=== PATIENT | male | born 1990 | race Caucasian/White ===

== ENCOUNTER 2018-03-15 20:28 | Emergency (ER) | payer OTHER ==
[2018-03-15 22:59] VITALS: BP 140/65; PULSE 85; RESP 16; TEMP 99.4
[2018-03-15] MEDS ORDERED: LORazepam 1 MG TAB PO STA (23:08)
--- NOTE | 2018-03-15 23:10 | ED ---
General Adult HPI - General Chief complaint: Psychiatric Symptoms Stated complaint: Mental Health Time Seen by Provider: 03/15/18 21:17 Source: patient, RN notes reviewed Mode of arrival: ambulatory Limitations: no limitations - History of Present Illness Initial comments: Chief complaint and history of present illness is a 28-year-old male here with a complaint that he has run out of his Ativan, Wellbutrin and Neurontin. He states he has difficulties getting to see his doctor who won't refill of less she sees him in follow-up. He's been out of these approximately one month. Patient reports she is depressed but not suicidal. Also reports going through a divorce. Denies overdosing. - Related Data Allergies Allergy/AdvReac Type Severity Reaction Status Date / Time No Known Allergies Allergy Verified 03/15/18 21:04 Review of Systems ROS Statement: Those systems with pertinent positive or pertinent negative responses have been documented in the HPI. Review of systems no other complaints this time. Past history significant for depression. He has cut himself twice in the past. Again denies wanting to hurt himself at this time denies homicidal thoughts. Surgeries include hand surgery from industrial accident. Family history father of lung cancer. Patient is a smoker strongly encouraged to stop. Patient denies any ALLERGIES. Drinks alcohol socially. ROS Other: All systems not noted in ROS Statement are negative. Past Medical History Past Medical History: No Reported History History of Any Multi-Drug Resistant Organisms: None Reported Past Surgical History: Orthopedic Surgery Additional Past Surgical History / Comment(s): left hand surgery Past Psychological History: Bipolar, Depression Smoking Status: Current every day smoker Past Alcohol Use History: Occasional Past Drug Use History: Marijuana General Exam - General Exam Comments Initial Comments: General: The patient is awake and alert, in no distress, and does not appear acutely ill. Here with a complaint of being depressed. But not suicidal. Wants to talk psychiatric nurse. Vital signs temp 98.8 pulse 81 respiratory rate 18 pulse ox 97% room air blood pressure 127/77 Eye: Pupils are equal, round and reactive to light, extra-ocular movements are intact ; there is normal conjunctiva bilaterally. No signs of icterus. Ears, nose, mouth and throat: There are moist mucous membranes and no oral lesions. Neck: The neck is supple, there is no tenderness. Cardiovascular: There is a regular rate and rhythm. No murmur, rub or gallop is appreciated. Respiratory: Lungs are clear to auscultation, respirations are non-labored, breath sounds are equal. No wheezes, stridor, rales, or rhonchi. Gastrointestinal: Soft, non-distended, non-tender abdomen without masses or organomegaly noted. There is no rebound or guarding present. No CVA tenderness. Bowel sounds are unremarkable. Back: There is no tenderness to palpation in the midline. There is no obvious deformity. No rashes noted. Musculoskeletal: Normal ROM, no tenderness, There is no pedal edema. There is no calf tenderness or swelling. Sensation intact. Healed self-inflicted injuries left forearm.. Neurological: No neuro deficits Skin: Skin is warm and dry and no rashes or lesions are noted. Psychiatric: Cooperative, history of depression. Denies being suicidal. Limitations: no limitations Course Vital Signs 03/15/18 03/15/18 21:01 22:59 Temperature 98.8 F 99.4 F Pulse Rate 81 85 Respiratory 18 16 Rate Blood Pressure 127/77 140/65 O2 Sat by Pulse 97 99 Oximetry Medical Decision Making - Medical Decision Making Medical decision making; this is a 28-year-old male here with a complaint of having run out of his medications including Ativan, Wellbutrin and Neurontin. Patient was evaluated by psychiatric nurse to the emergency room. She discussed the case with the psychiatrist. The patient was given referrals. He' ll be given 0.5 Ativan this evening. Patient again states not suicidal or homicidal. Disposition Clinical Impression: Depression Disposition: HOME SELF-CARE Condition: Fair Instructions: Depression (ED) Additional Instructions: Follow-up with family doctor and referrals to local [facility] facility. Turn emergency room if he have change in emotional state Is patient prescribed a controlled substance at d/c from ED?: No Referrals: Lorraine Cruz MD [Primary Care Provider] - 1-2 days
[2018-03-15 23:16] LABS: Amphetamine Screen,Urine Not Detected (NotDetected); Barbiturate Screen,Urine Not Detected (NotDetected); Benzodiazepines Screen,Urine Not Detected (NotDetected); Cocaine Screen,Urine Detected (NotDetected); Methadone Screen, Urine Not Detected (NotDetected); Opiate Screen,Urine Detected (NotDetected); Oxycodone Screen, Urine Not Detected (NotDetected); Phencyclidine Screen,Urine Not Detected (NotDetected); Tricyclic Antidepressant,Urine Not Detected (NotDetected); Urn Cannabinoid Scrn Not Detected (NotDetected)
== END 2018-03-15 23:20 | disposition home or self-care (01) ==
LOC: EC 20:28
DX: F32.9 Major depressive disorder, single episode, unspecified (principal); F17.200 Nicotine dependence, unspecified, uncomplicated
CPT/HCPCS: 80306; 82075; 99284

== ENCOUNTER 2022-03-30 00:25 | Inpatient (IN) | payer MEDICAID ==
[2022-03-30] MEDS ORDERED: HALOPERIDOL LACTATE 5 MG/ML 1 ML VIAL IM PRN (00:46)
[2022-03-30] MEDS ORDERED: ACETAMINOPHEN TAB 325 MG TAB PO PRN (00:46)
[2022-03-30] MEDS ORDERED: MAG HYDROX/AL HYDROX/SIMETH 30 ML CUP PO PRN (00:46)
[2022-03-30] MEDS ORDERED: LORazepam 1 MG/0.5 ML VIAL IM PRN (00:48)
[2022-03-30] MEDS ORDERED: haloperidoL 5 MG TAB PO PRN (00:49)
[2022-03-30] MEDS ORDERED: LOPERAMIDE 2 MG CAP PO PRN (00:50)
[2022-03-30] MEDS ORDERED: ONDANSETRON 4 MG TAB PO PRN (00:50)
[2022-03-30] MEDS: NICOTINE 14MG/24HR PATCH TRANSDERM SCH ×2 (12:58→13:07)
[2022-03-30] MEDS: LORazepam 1 MG TAB PO PRN (12:58)
[2022-03-30] MEDS: cloNIDine HCL 0.2 MG TAB PO PRN (12:58)
--- NOTE | 2022-03-30 16:35 | P.HPMEDMHU ---
History of Present Illness H&P Date: 03/30/22 Chief Complaint: depression Patient is a 32-year-old male with a history of opiate dependency, ventral hernia, and bipolar disorder who was admitted to the mental health unit from [facility] due to suicidal ideation. Patient seen and examined at bedside. He denies any recent cough, cold, fever, flu, nausea, vomiting, diarrhea, dysuria. He states he's been feeling depressed recently. He attended a opiate detox program and relapsed quickly after dis charge and has become depressed. He has no other complaints at this time. He did have a ventral hernia repair approximately 2 and half months ago and has been doing well since then. Pertinent positives and negatives as discussed in HPI, a complete review of systems was performed and all other systems are negative. Vital signs reviewed General: nontoxic, no distress, appears at stated age Derm: warm, dry, multiple tattoos Head: atraumatic, normocephalic, symmetric Eyes: EOMI, no lid lag, anicteric sclera, pupils equal round reactive to light ENT: Nose and ears atraumatic, no thrush, no pharyngeal erythema Neck: No thyromegaly, no cervical lymphadenopathy, trachea midline, supple Mouth: no lip lesion, mucus membranes moist Cardiovascular: S1S2 reg, no murmur, positive posterior tibial pulse bilateral, no edema, capillary refill less than 2 seconds Lungs: clear to auscultation bilateral, no rhonchi, no rales, no wheeze, no accessory muscle use Abdominal: soft, nontender to palpation, no guarding, no appreciable organomegaly, normal bowel sounds, healing scar. Abdomen Ext: no gross muscle atrophy, muscle strength muscle strength 5 out of 5 in all 4 extremities, no contractures Neuro: CN II-XII grossly intact, light touch intact all 4 extremities, finger to nose within normal limits, Psych: Alert, oriented, appropriate affect Assessment/Plan: Opiate dependency -Continue with abstinence -Initiate medications for possible opiate withdrawal including Motrin, Catapres, Maalox, and Zofran. Suicidal ideation with history of bipolar -Your psych management Laboratory analysis reviewed from [facility] and unremarkable. Thank you for allowing us to participate in the care of this pleasant patient. Do not hesitate to contact us with questions. Someone can be reached from the [facility] hospitalist group all hours of the day at [phone] or via [employer]. Past Medical History Past Medical History: No Reported History History of Any Multi-Drug Resistant Organisms: None Reported Past Surgical History: Orthopedic Surgery Additional Past Surgical History / Comment(s): left hand tendon repair, ventral hernia repair Past Psychological History: Bipolar, Depression Smoking Status: Former smoker Past Alcohol Use History: None Reported, Occasional Past Drug Use History: Heroin, Marijuana, Opiates Additional Drug Use History / Comment(s): snorts heroin and fentanyl Medications and Allergies Allergies Allergy/AdvReac Type Severity Reaction Status Date / Time No Known Allergies Allergy Verified 03/30/22 14:09 Physical Exam Osteopathic Statement: *. No significant issues noted on an osteopathic structural exam other than those noted in the History and Physical/Consult. Vitals: Vital Signs Temp Pulse Resp BP Pulse Ox 03/30/22 12:39 98.2 F 62 20 125/61 98 Intake and Output 03/30/22 03/30/22 03/30/22 06:59 14:59 22:59 Other: Weight 99.8 kg 93 kg Cranial Nerve Examination - Cranial Nerves Cranial Nerve II- Optic: Intact Cranial Nerve III- Oculomotor: Intact Cranial Nerve IV- Trochlear: Intact Cranial Nerve V- Trigeminal: Intact Cranial Nerve - Abducens: Intact Cranial Nerve VII- Facial: Intact Cranial Nerve VIII- Auditory: Intact Cranial Nerve IX- Glossopharyngeal: Intact Cranial Nerve X- Vagus: Intact Cranial Nerve XI- Accessory: Intact Cranial Nerve XII- Hypoglossal: Intact
[2022-03-30] MEDS: traZODone HCL 100 MG TAB PO SCH (21:55)
[2022-03-31] MEDS: LORazepam 1 MG TAB PO PRN ×2 (08:24→17:22)
[2022-03-31] MEDS: cloNIDine HCL 0.2 MG TAB PO PRN ×2 (08:24→17:22)
[2022-03-31] MEDS: NICOTINE 14MG/24HR PATCH TRANSDERM SCH (08:25)
--- NOTE | 2022-03-31 10:06 | P.HP ---
Psychiatric H&P - . H&P Date: 03/31/22 History & Physical: IDENTIFYING DATA: Teodoro is a 32-year-old single male transferred from [facility] HISTORY OF PRESENT ILLNESS: According to the information in the transfer report he presented to the emergency room at [facility] with complaints of suicidal ideation, depression and isolation over the week prior to his presentation. He had suicidal ideations of an intentional overdose. During our interview he stated that he presented to [facility] he has he wanted to reenter mental health treatment. He talked about having been prescribed medications through a clinic at [facility] in 2014 that were effective in treating his depression and helping to control his use of heroin. He described wishes but denied that he had suicidal intent or plan. He has a long history of substance use, primarily heroin, and legal problems beginning in adolescence. He was released from [place] [facility] after serving 12 months for multiple charges including to two counts of retail fraud and 1, was assault with intent of great bodily harm. His release he spent 4 months in [facility] and was [facility] on March 13 [facility] [place] [facility]. He relapsed to heroin and cocaine while he was a resident at [facility]. He sought treatment because he is concerned that if he continued using he would eventually recur additional legal problems and once again be incarcerated. He described feelings of depression, hopelessness and helplessness particularly related to his substance use and legal problems. He described symptoms of depression including low energy, unrestful sleep and poor appetite. He complained of vague anxiety symptoms and denied a specific object. I was unable to identify a clear episode of elevated mood or sustained irritability suggestive of meghana or hypomania. He denied experiencing psychotic symptoms such as hallucinations, paranoia or confusion. PAST PSYCHIATRIC HISTORY: He said "3 or 4" psychiatric hospitalizations beginning when he is 13 years old at [facility]. When I asked about reason for this hospitalization he replied it was a time when his grandparents . The longest he was consistently involved with outpatient treatment was in 2013 when he was in treatment through a clinic [facility]. PAST MEDICAL HISTORY: He denied major medical problems ALLERGIES: Known drug ALLERGIES SUBSTANCE USE HISTORY: He is a history of heroin use beginning in adolescence. He alleged that he went "straight" to heroin. He occasionally uses cocaine but denied use of other drugs including oral opiate medications and methamphetamine. He has injected heroin in the past but primarily insufflates. He is not been in the methadone clinic and is not been prescribed buprenorphine by a provider for the treatment of his opiate use disorder. His longest period of abstinence was approximately 24 months while he was incarcerated. He was abstinent from heroin for 14 months when he was prescribed Vivatrol by a private practitioner. FAMILY PSYCHIATRIC/SUBSTANCE USE HISTORY: His brother has a history of an opiate use disorder. LEGAL HISTORY: He has long history of legal problems beginning in adolescence. He is currently on probation for 2 counts of retail fraud and assault with great bodily harm less than murder. He is inactive charges of breaking into nothing larceny and multiple counts of home invasion. SOCIAL HISTORY: His born and raised in [facility]. He was raised by his mother and his grandparents. His father was not present. He left school in the 10th grade but received a GED. 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 He is single and has 2 children by 2 different mothers. MENTAL STATUS EXAM: He presented as a stocky 32-year-old male with a bald head and multiple tattoos on his chest, arms, chest, neck and face. He made eye contact and attended to the interview. He had no prominent physical abnormalities. He had a blunted facial expression. He was alert and oriented to person, place and time. He had slight psychomotor retardation but no abnormal involuntary movements. His speech was spontaneous with decreased rate and volume. His affect was depressed and not reactive. He denied suicidal ideation but described wishes. He denied homicidal ideation. He expressed feelings of hopelessness and helplessness primarily with regard to his legal and substance use problems. He did not express ideas reference, paranoid ideation, magical ideation or delusions. His thinking was concrete but his associations were coherent, logical and goal directed. He denied hallucinations did not appear to be responding to internal stimuli. Global impression of intellect is average. He is aware of his illness and need for treatment. STRENGTHS: Good physical health, stable housing, unemployment WEAKNESSES: Substance use disorder, legal problems IMPRESSION: He is a 32-year-old single male with long history of legal and substance use problems. He presented to [facility] with complaints of suicidal ideation without intent or plan. He is been under legal supervision or approximate 16 months and relapsed to heroin 2 days after his release from supervision. He is concerned that if he would relapse fully to heroin he reengage and illegal activities. He appears depressed and has other symptoms suggestive of a depressive disorder. She presented an inpatient basis, psychopharmacology and multimodal therapy. PRINCIPLE DIAGNOSIS: Unspecified depressive disorder, rule out major depressive disorder, rule out dysthymic disorder, rule out opiate induced mood disorder, opiate use disorder severe, cocaine use disorder, legal problems, probable antisocial personality disorder RECOMMENDATION: Admitted to the psychiatric unit. Safety precautions. Consult medicine for initial physical exam and medical history. production utility worker to complete the initial psychosocial assessment coordinate discharge and aftercare. Begin Wellbutrin 100 mg twice a day and titrated according to clinical response and tolerance. Clonidine 0.2 mg by mouth 4 times a day when necessary for opiate withdrawal, Imodium 2 mg 4 times a day when necessary for opiate withdrawal, Zofran 4 mg by mouth every 8 hours when necessary for opiate withdrawal, trazodone 100 mg by mouth daily at bedtime when necessary for sleep, Habitrol for smoking cessation. Haldol and/or Ativan when necessary for agitation, aggression acute psychosis. Encourage participation in therapeutic groups and activities. Evaluate clinical status response to treatment daily basis. Allergies Allergy/AdvReac Type Severity Reaction Status Date / Time No Known Allergies Allergy Verified 03/30/22 14:09 Vital Signs Temp 98.2 F 03/30/22 12:39 Pulse 62 03/30/22 12:39 Resp 20 03/30/22 12:39 BP 125/61 03/30/22 12:39 Pulse Ox 98 03/30/22 12:39 FiO2 Intake & Output 03/30/22 03/31/22 03/31/22 18:59 06:59 18:59 Weight 93 kg Laboratory Last Values TSH 1.030 mIU/L (0.465-4.680) 03/31/22 07:55 03/31/22 09:20 03/31/22 10:03
[2022-03-31 16:50] LABS: Chol/HDL Ratio 4.66 Ratio; LDL Cholesterol,Calculated 102.1 mg/dL (0.0-131.0)
[2022-03-31] MEDS: traZODone HCL 100 MG TAB PO SCH (21:42)
[2022-04-01] MEDS: MAGNESIUM HYDROXIDE 2,400 MG/10 ML CUP PO PRN ×2 (06:35→18:43)
[2022-04-01] MEDS: LORazepam 1 MG TAB PO PRN ×3 (06:35→21:27)
[2022-04-01] MEDS: NICOTINE 14MG/24HR PATCH TRANSDERM SCH ×2 (09:06→10:09)
[2022-04-01] MEDS ORDERED: buPROPion 100 MG TAB PO STA (10:01)
[2022-04-01] MEDS ORDERED: GABAPENTIN 300 MG CAP PO STA (10:04)
--- NOTE | 2022-04-01 11:50 | P.PN ---
Progress Note - Text Progress Note Date: 04/01/22 Interval History: Patient was seen wandering the hallways and was directable and agreeable to speak with bond writer in the office. Patient reports that he is feeling well. He is currently denying any suicidal or homicidal comments. He is not reporting any auditory or visual hallucinations. He is denying any paranoia or other delusions. The patient reports that the longest he has been sober was for 3 years. He states that after time he was incarcerated and during the other half, he was on a regimen of Wellbutrin and Neurontin. He also reports that Neurontin was helpful in addressing his nerve pain that resulted from him cutting his wrists in the distant past. Furthermore, the patient denies any history of seizures. He was counseled at length that substance abuse may contribute to a lower seizure threshold. He wishes to start the Wellbutrin today. Mental Status Exam: General Appearance: Patient appears to be stated age is alert, directable, and cooperative. The patient has multiple tattoos and superficial scarring on his left forearm. Behavior: Patient is calmly seated without any agitated behavior. Speech: Patient's speech is fluent and nonpressured. Mood/Affect: Mood is improving mildly, affect is congruent and euthymic to bright. Suicidality/Homicidality: Patient reports no suicidal or homicidal ideation, intention, and/or plan. Perceptions: Patient denies any visual hallucinations and denies any auditory hallucinations Though content/process: There is no evidence of any delusional thought content and thought process is linear and goal-directed. Memory and concentration: AOX3, grossly intact for the purposes of this session Judgment and insight: Improving mildly Vital Signs Temp 97.9 F 04/01/22 06:36 Pulse 87 04/01/22 06:36 Resp 18 04/01/22 06:36 BP 100/66 04/01/22 06:36 Pulse Ox 97 04/01/22 06:36 FiO2 Intake & Output 03/31/22 04/01/22 04/01/22 18:59 06:59 18:59 Weight 94.1 kg Laboratory Results - Last 24 Hours 03/31/22 07:55 Triglycerides 169.00 H Cholesterol 173.00 LDL Cholesterol, Calc 102.1 VLDL Cholesterol, Calc 33.80 HDL Cholesterol 37.10 L Cholesterol/HDL Ratio 4.66 Assessment Major depressive disorder Opiate use disorder Cocaine use disorder Plan: -Patient continues to meet criteria for inpatient psychiatric admission for symptom stabilization and safety. Patient has signed adult voluntary form and medication consent and was placed in patient's chart. -Medications: Start Wellbutrin 100 mg by mouth twice a day for depression Start gabapentin 3 mg by mouth twice a day for a label use for anxiety to address neuropathic pain -When necessary Ativan and Haldol for agitation/aggression. -NRT - nicotine patch -SW on board for discharge planning. Encouraged the patient to participate in milieu.
[2022-04-01] MEDS: cloNIDine HCL 0.2 MG TAB PO PRN (13:48)
[2022-04-01] MEDS ORDERED: LORazepam 2 MG/ML INJ IM PRN (18:32)
[2022-04-01 21:27] VITALS: RESP 16
[2022-04-01] MEDS: traZODone HCL 100 MG TAB PO SCH (21:27)
[2022-04-01] MEDS: buPROPion 100 MG TAB PO SCH (21:27)
[2022-04-01] MEDS: GABAPENTIN 300 MG CAP PO SCH (21:27)
[2022-04-02 07:08] VITALS: BP 104/58; PULSE 80; TEMP 97.5
[2022-04-02] MEDS: LORazepam 1 MG TAB PO PRN (08:12)
[2022-04-02] MEDS: buPROPion 100 MG TAB PO SCH (08:12)
[2022-04-02] MEDS: GABAPENTIN 300 MG CAP PO SCH (08:12)
[2022-04-02] MEDS: NICOTINE 14MG/24HR PATCH TRANSDERM SCH (08:12)
[2022-04-02] MEDS: MAGNESIUM HYDROXIDE 2,400 MG/10 ML CUP PO PRN (08:32)
--- NOTE | 2022-04-02 11:38 | P.DS ---
Providers Date of admission: 03/30/22 12:15 Expected date of discharge: 04/02/22 Attending physician: Quan Chung MD Consults: 03/30/22 00:46 Consult Physician Routine Consulting Provider: Gwendolyn Eng Consult Reason/Comments: H and P Do you want consulting provider notified?: Yes Primary care physician: Stated None - Discharge Diagnosis(es) (1) Major depressive disorder Current Visit: Yes Status: Acute Priority: High (2) Cocaine use disorder Current Visit: Yes Status: Chronic Priority: Medium (3) Heroin use disorder, moderate Current Visit: Yes Status: Chronic Priority: Medium Hospital Course: Admission HPI: Initial psychiatric evaluation was completed by Dr Mast who wrote: "Teodoro is a 32-year-old single male transferred from [facility] HISTORY OF PRESENT ILLNESS: According to the information in the transfer report he presented to the emergency room at [facility] with complaints of suicidal ideation, depression and isolation over the week prior to his presentation. He had suicidal ideations of an intentional overdose. During our interview he stated that he presented to [facility] he has he wanted to reenter mental health treatment. He talked about having been prescribed medications through a clinic at [facility] in 2014 that were effective in treating his depression and helping to control his use of heroin. He described wishes but denied that he had suicidal intent or plan. He has a long history of substance use, primarily heroin, and legal problems beginning in adolescence. He was released from [place] after serving 12 months for multiple charges including to two counts of retail fraud and 1, was assault with intent of great bodily harm. His release he spent 4 months in [facility] and [facility] [place] [facility]. He relapsed to heroin and cocaine while he was a resident at [facility]. He sought treatment because he is concerned that if he continued using he would eventually recur additional legal problems and once again be incarcerated. He described feelings of depression, hopelessness and helplessness particularly related to his substance use and legal problems. He described symptoms of depression including low energy, unrestful sleep and poor appetite. He complained of vague anxiety symptoms and denied a specific object. I was unable to identify a clear episode of elevated mood or sustained irritability suggestive of meghana or hypomania. He denied experiencing psychotic symptoms such as hallucinations, paranoia or confusion. He said "3 or 4" psychiatric hospitalizations beginning when he is 13 years old at [facility]. When I asked about reason for this hospitalization he replied it was a time when his grandparents . The longest he was consistently inv olved with outpatient treatment was in 2013 when he was in treatment through a clinic [facility]." Hospital course: Upon admission to the unit patient was initially presenting with mild psychomotor retardation and suicidal ideation. Patient was however directable and agreeable to commence treatment. Patient got along well with other patients on the unit and followed unit protocol. Patient was compliant with the medications and denied any side effects throughout hospital course. Patient was started on clonidine. Patient , Imodium, trazodone, and Zofran for opiate wit hdrawal. The patient was then evaluated by this provider who initiated treatment with Wellbutrin and gabapentin for management of depression and anxiety as well as neuropathic pain. Over the course the hospitalization, the patient is with significant improvement regards his target symptoms depression and suicidal ideation. He became more future and goal oriented. He was also evaluated by the medical team for history and physical examination. The patient signed himself voluntarily on the psychiatric unit. On the day of discharge, the patient is not reporting any suicidal or homicidal ideation, intention, and/or plan. He is not reporting any auditory or visual hallucinations. He denies any paranoia or other delusions. The patient denies any access to firearms or other weapons. He reports future and goal orientation with a strong desire to live for himself as well as for his girlfriend. The patient does have significant history of substance abuse was counseled great length on abstaining from all substances including alcohol, marijuana, opiates, and cocaine. The patient was offered however declined inpatient substance-abuse rehabilitation. He was counseled on medication adherent and appropriate outpatient follow-up. As additional longer met criteria for inpatient psychiatric hospital stabilization, he was subsequently discharged. Mental status exam: General Appearance: Patient appears to be stated age is alert, pleasant, and cooperative. Patient is in no acute distress and has fair hygiene and grooming. Bald with multiple tattoos. Behavior: Patient is calmly seated without any agitated behavior. Speech: Patient's speech is fluent and nonpressured. Mood/Affect: Patient reports their mood is "much better", affect is congruent and euthymic to bright. Suicidality/Homicidality: Patient denies having any suicidal or homicidal ideation intent or plan. Perceptions: Patient denies any auditory or visual hallucinations. Though content/process: There is no evidence of any delusional thought content and thought process is linear and goal-directed. Patient is future oriented. Memory and concentration: AOX3, grossly intact for the purposes of this session. Can spell "WORLD" backwards correctly. Judgment and insight: Improved with guarded prognosis Vital Signs Temp 97.5 F L 04/02/22 07:08 Pulse 80 04/02/22 07:08 Resp 16 04/01/22 21:26 BP 104/58 04/02/22 07:08 Pulse Ox 98 04/01/22 21:26 FiO2 Laboratory Results Estimated Ave Glu mg/dL 106 03/31/22 07:55 Hemoglobin A1c 5.3 % (0.0-6.0) 03/31/22 07:55 Triglycerides 169.00 mg/dL (0.00-149.00) H 03/31/22 07:55 Cholesterol 173.00 mg/dL (0.00-200.00) 03/31/22 07:55 LDL Cholesterol, Calc 102.1 mg/dL (0.0-131.0) 03/31/22 07:55 VLDL Cholesterol, Calc 33.80 mg/dL (5.00-40.00) 03/31/22 07:55 HDL Cholesterol 37.10 mg/dL (40.00-60.00) L 03/31/22 07:55 Cholesterol/HDL Ratio 4.66 Ratio 03/31/22 07:55 TSH 1.030 mIU/L (0.465-4.680) 03/31/22 07:55 Allergies Allergy/AdvReac Type Severity Reaction Status Date / Time No Known Allergies Allergy Verified 03/30/22 14:09 Impression: Major depressive disorder Opiate use disorder Cocaine use disorder Plan: -Continue with discharge today as patient has improved and stabilized psychiatrically and is not currently an imminent threat to himself and/or others. Patient will remain at chronically elevated risk for harm to self and/or others due to his impulsivity and polysubstance abuse. -Continue medications: Wellbutrin 100 mg twice a day for depression Gabapentin 300 mg by mouth twice a day for anxiety and for neuropathic pain. -Patient was counseled on the need for medication compliance and appropriate follow-up at mental health and also primary care for medical issues. Patient verbalized understanding and agreed. -Social work to arrange for and conduct family meeting to ensure safety upon discharge and answer any questions/concerns. Social work also to arrange for patients follow up appointments with [facility] for psychiatric care along with follow up with primary care provider. -Patient counseled on abstaining from recreational drugs and marijuana and alcohol. Was informed/educated on the adverse effects on their physical and mental health. Patient verbally agreed and understood. Patient was offered substance abuse treatment however declined at this time. -Patient was instructed to return to the hospital or seek immediate medical care if their psychiatric or medical symptoms do worsen or reoccur. -Psychoeducation and supportive therapy provided to patient. Risks and benefits of pharmacological treatment versus the risks and benefits of nontreatment weight and discussed. Informed consent discussion held. Common side effects of psychotropics discussed such as, but not limited to headache, GI disturbance, sexual dysfunction, movement disorders, sedation, and orthostatic hypotension. Life threatening and blackbox warnings of prescribed medications also discussed. Potential risks of operating a vehicle or heavy machinery discussed with patient at length. Advised on importance of compliance and a reliable and responsible manner. Patient advised to review FDA consumer labeling of all medications prior to taking. Patient verbalized understanding of potential risks, and agrees with current treatment plan. Patient advised to medically contact physician/emergency personnel if any acute changes in condition occur. Patient Condition at Discharge: Stable Plan - Discharge Summary Discharge Rx Participant: No New Discharge Prescriptions: New buPROPion [Wellbutrin] 100 mg PO BID 30 Days tab traZODone HCL [Desyrel] 100 mg PO HS 30 Days tab Gabapentin [Neurontin] 300 mg PO BID 30 Days cap Discharge Medication List Gabapentin [Neurontin] 300 mg PO BID 30 Days cap 04/02/22 [Rx] buPROPion [Wellbutrin] 100 mg PO BID 30 Days tab 04/02/22 [Rx] traZODone HCL [Desyrel] 100 mg PO HS 30 Days tab 04/02/22 [Rx] Follow up Appointment(s)/Referral(s): [facility] (Pt needs to call to complete substance screening per access) Patient Instructions/Handouts: Depression (DC) Activity/Diet/Wound Care/Special Instructions: Avoid the use of street drugs and alcohol. Take all prescriptions as prescribed. When you are in need of refills on your medications, please contact your medical provider and/or outpatient psychiatrist to have this done. Please go to scheduled outpatient appointment for aftercare treatment. If symptoms return or become worse, call the crisis line at and/or go to the nearest emergency room for evaluation. Discharge Disposition: HOME SELF-CARE
== END 2022-04-02 12:03 | disposition home or self-care (01) | DRG 881 ==
LOC: 3MHU 12:15
PROVIDERS: ADMIT Psychiatry & Neurology Psychiatry; ATTEND Psychiatry & Neurology Psychiatry
DX: F32.9 Major depressive disorder, single episode, unspecified (principal); F11.23 Opioid dependence with withdrawal; F14.10 Cocaine abuse, uncomplicated; F41.9 Anxiety disorder, unspecified; Z91.51 Personal history of suicidal behavior; Z87.828 Personal history of other (healed) physical injury and trauma; Z56.0 Unemployment, unspecified; Z65.3 Problems related to other legal circumstances; Z79.899 Other long term (current) drug therapy; Z28.310 Unvaccinated for COVID-19; Z28.21 Immunization not carried out because of patient refusal; Z87.891 Personal history of nicotine dependence; Z71.51 Drug abuse counseling and surveillance of drug abuser
CPT/HCPCS: 80061; 83036; 84443